=== PATIENT | female | born 1975 | race Caucasian/White ===

== ENCOUNTER → 2016-07-13 | Outpatient (CLI) | payer OTHER ==
[~2016-07-13] MED LIST: PRLSR20 PO; SPIR100T PO
[2016-07-13 12:18] LABS: BASO % 0.5 %; BASO ABS # 0.03 K/uL (0-0.2); COMPLETE YES; EOS % 2.7 %; HEMATOCRIT 39.7 % (37-47); IG% 0.7 %; LYMPH ABS # 1.84 K/uL (1.2-3.4); MEAN CORPUSCULAR HEMOGLOBIN 32.6 pg (25-34); MEAN PLATELET VOLUME 10.1 fL (7.4-10.4); MONO % 8.9 %; NEUT % 56.2 %; PLATELET COUNT 313 K/uL (130-400); RED BLOOD COUNT 4.27 M/uL (4.2-5.4); WHITE BLOOD COUNT 5.94 K/uL (4.8-10.8)
[2016-07-13 12:27] LABS: ALT/SGPT 53 U/L (12-78); AST/SGOT 22 U/L (15-37); BLOOD UREA NITROGEN 16 mg/dl (7-18); CALCIUM 9.1 mg/dl (8.5-10.1); CARBON DIOXIDE 27 mmol/L (21-32); CHLORIDE 104 mmol/L (98-107); CREATININE 0.82 mg/dl (0.60-1.20); GLUCOSE 84 mg/dl (70-99); POTASSIUM 4.3 mmol/L (3.5-5.1); SODIUM 138 mmol/L (136-145)
[2016-07-13 12:38] LABS: ALB/GLOB RATIO 1.4 (0.9-2); ALKALINE PHOSPHATASE 61 U/L (45-117)
== END | disposition home or self-care (01) ==
LOC: C.LABBFT 09:36
PROVIDERS: ATTEND Internal Medicine
DX: Z00.00 Encounter for general adult medical examination without abnormal findings (principal); R42 Dizziness and giddiness

== ENCOUNTER → 2016-07-21 | Outpatient (CLI) | payer OTHER ==
[~2016-07-21] MED LIST changes: +GADAVIST IV PRN
--- NOTE | 2016-07-21 20:50 | DIAGNOSTIC IMAGING REPORT ---
MRI OF THE BRAIN WITHOUT AND WITH IV CONTRAST CLINICAL HISTORY: Dizziness and headache COMPARISON STUDY: No previous studies for comparison. TECHNIQUE: MRI of the brain was performed from the vertex to the skull base utilizing various T1 and T2 weighted sequences. Following the IV administration of 5 mL of Gadavist contrast, additional enhanced images were obtained. FINDINGS: Sagittal T1, axial diffusion, proton density and T2 weighted axial, coronal FLAIR, and pre and post axial T1-weighted images were acquired. These were supplemented with post gadolinium coronal T1 weighted images. No intra or extra-axial mass lesions are visualized. Axial diffusion-weighted images reveal no evidence of acute or subacute infarction. There is no evidence of ventricular dilatation. Proton density T2-weighted and FLAIR images reveal a 2 mm focus of increased FLAIR signal within the right temporal lobe preston-white junction. This is not visualized on proton density or T2 weighted images. There is no surrounding edema. There is no pathologic enhancement. It is unclear whether this is a real or artifactual lesion. A 6 month follow-up study might be considered. There are no abnormal flow voids. 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 IMPRESSION: 1. No evidence of acute or subacute infarction 2. 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 2 mm focus of increased FLAIR signal within the right temporal lobe preston-white junction visualized only on coronal FLAIR images. It is conceivable that this is artifactual. A 6 month follow-up study might be considered. Electronically signed by: Raphael Nava M.D. 07/21/2016 8:48 PM Dictated Date/Time: 07/21/2016 8:41 PM
== END | disposition home or self-care (01) ==
LOC: C.MRI 19:14
PROVIDERS: ATTEND Internal Medicine
DX: R42 Dizziness and giddiness (principal); R51 Headache

== ENCOUNTER → 2016-08-11 | Outpatient (CLI) | payer OTHER ==
[~2016-08-11] MED LIST changes: -GADAVIST IV PRN
[2016-08-11 19:56] LABS: LYME DISEASE AB IGG NEG (NEG); LYME DISEASE AB IGM NEG (NEG)
== END | disposition home or self-care (01) ==
LOC: C.LABBC 15:30
PROVIDERS: ATTEND Psychiatry & Neurology Neurology
DX: R42 Dizziness and giddiness (principal); G44.209 Tension-type headache, unspecified, not intractable

== ENCOUNTER 2016-12-14 15:44 | Emergency (ER) | payer OTHER ==
[~2016-12-14] VITALS: Ht 162.6 cm; Wt 55.6 kg
[2016-12-14 15:51] VITALS: TEMP 36.7; Ht 162.6 cm; Wt 55.6 kg
[2016-12-14] MEDS ORDERED: ALUMINUM/MAGNESIUM SUSP 30 ML UDC PO STA (16:03)
[2016-12-14] MEDS ORDERED: PANTOprazole SOD 40 MG TAB PO STA (16:03)
[2016-12-14 16:24] VITALS: O2SAT 99
--- NOTE | 2016-12-14 16:25 | DIAGNOSTIC IMAGING REPORT ---
CHEST ONE VIEW PORTABLE CLINICAL HISTORY: Chest pain radiating to the back. COMPARISON STUDY: No previous studies for comparison. FINDINGS: The cardiac and mediastinal contours are normal. There is no evidence of focal pulmonary consolidation. There is no evidence of failure. No pleural effusions are visualized.[ IMPRESSION: No active disease in the chest. Electronically signed by: Raphael Nava M.D. 12/14/2016 4:23 PM Dictated Date/Time: 12/14/2016 4:23 PM
[2016-12-14 16:29] LABS: BASO % 0.2 %; BASO ABS # 0.02 K/uL (0-0.2); COMPLETE YES; EOS % 1.3 %; HEMATOCRIT 40.1 % (37-47); IG% 0.4 %; LYMPH % 16.5 %; LYMPH ABS # 1.41 K/uL (1.2-3.4); MEAN CELL VOLUME 94.6 fL (80-100); MEAN CORPUSCULAR HEMOGLOBIN 32.1 pg (25-34); MEAN CORPUSCULAR HGB CONC 33.9 g/dl (32-36); MEAN PLATELET VOLUME 9.6 fL (7.4-10.4); MONO % 8.9 %; NEUT % 72.7 %; PLATELET COUNT 269 K/uL (130-400); RED BLOOD COUNT 4.24 M/uL (4.2-5.4); WHITE BLOOD COUNT 8.54 K/uL (4.8-10.8)
[2016-12-14 16:50] LABS: PARTIAL THROMBOPLASTIN RATIO 1.1
[2016-12-14 16:52] LABS: ALT/SGPT 40 U/L (12-78); AST/SGOT 19 U/L (15-37); BLOOD UREA NITROGEN 13 mg/dl (7-18); BUN/CREATININE RATIO 17.8 (10-20); CALCIUM 9.1 mg/dl (8.5-10.1); CARBON DIOXIDE 25 mmol/L (21-32); CHLORIDE 104 mmol/L (98-107); CREATININE 0.73 mg/dl (0.60-1.20); GLUCOSE 80 mg/dl (70-99); POTASSIUM 3.6 mmol/L (3.5-5.1); SODIUM 139 mmol/L (136-145)
[2016-12-14 16:53] LABS: PREG INTERNAL NEGATIVE QC NEG CLEAR BACKGROUND; PREG INTERNAL POSITIVE QC POS CONTROL LINE
[2016-12-14 16:55] LABS: ALKALINE PHOSPHATASE 71 U/L (45-117)
--- NOTE | 2016-12-14 19:34 | EMERGENCY ROOM VISIT NOTE ---
History Report prepared by Ashishibgarrett: [employer] Under the Supervision of: Dr. Arthur Dotson D.O. First contact with patient: 15:54 Chief Complaint: CHEST PAIN Stated Complaint: CHEST PAIN- 24 HOURS, PAIN TO BACK AND EARS History of Present Illness The patient is a 41 year old female who presents to the Emergency Room with complaints of persistent centralized chest pain beginning yesterday. She states that her pain radiates into her back, shoulders, and up to her ears. She denies any cough, fevers, or diarrhea. The patient notes that she experienced a little lower abdominal pain yesterday. She has a history of heart burn and states that her symptoms felt similar, but worse. She denies eating any foods that would normally bring about her GERD. The patient noted that her pain worsened during dinner last night. She took Tums for her pain and feels that it helped her symptoms. She notes that her father had a heart attack in his 30's. The patient has no cardiac history. She has not received cardiac testing before. Her pain is worsened with exertion and deep breathing. Source of History: patient Onset: Yesterday Position: chest (centralized) Timing: other (persistent) Modifying Factors (Worsening): exertion, breathing (deep) Modifying Factors (Relieving): other (Tums) Associated Symptoms: + abdominal pain (yesterday), No fevers, No vomiting, No diarrhea Review of Systems See HPI for pertinent positives & negatives. A total of 10 systems reviewed and were otherwise negative. Past Medical & Surgical Medical Problems: (1) No Known Active Medical Problems Family History No pertinent family history stated. Social History Smoking Status: Never Smoker Housing Status: lives with family Current/Historical Medications Scheduled Omeprazole (Prilosec), 20 MG PO DAILY Spironolactone (Aldactone), 100 MG PO QAM Allergies Coded Allergies: Amoxicillin (Verified Allergy, Unknown, RASH, 12/14/16) Erythromycin (Verified Allergy, Unknown, RASH, 12/14/16) Minocycline (Verified Allergy, Unknown, HEADACHE, 12/14/16) Uncoded Allergies: SULFA DRUGS (Allergy, Unknown, VOMMITING, 05/13/15) Physical Exam Vital Signs Date Time Temp Pulse Resp B/P (MAP) Pulse Ox O2 Delivery O2 Flow Rate FiO2 12/14/16 19:40 81 18 105/68 98 12/14/16 18:30 81 18 117/66 100 Room Air 12/14/16 16:29 77 12/14/16 16:24 99 Room Air 12/14/16 16:24 99 Room Air 12/14/16 15:51 36.7 88 16 114/71 99 Room Air Physical Exam GENERAL: Patient is awake, alert, and in no acute distress. Patient is resting comfortably and showing no signs of anxiety EYES: The conjunctivae are clear. The pupils are round and reactive. EARS, NOSE, MOUTH AND THROAT: The nose is without any evidence of any deformity. Mucous membranes are moist tongue is midline NECK: The neck is nontender and supple. RESPIRATORY: Normal respiratory effort is noted there is no evidence of wheezing rhonchi or rales CARDIOVASCULAR: Regular rate and rhythm noted there no murmurs rubs or gallops normal S1 normal S2 GASTROINTESTINAL: The abdomen is soft. Bowel sounds are present in all quadrants. Abdomen is nontender MUSCULOSKELETAL/EXTREMITIES: There is no evidence of gross deformity full range of motion is noted in the hips and shoulders SKIN: There is no obvious evidence of any rash. There are no petechiae, pallor or cyanosis noted. NEUROLOGIC: Patient is awake alert and oriented x3 Medical Decision & Procedures ER Provider Diagnostic Interpretation: X-ray results as stated below per interpretation by me and the radiologist. CHEST ONE VIEW PORTABLE FINDINGS: The cardiac and mediastinal contours are normal. There is no evidence of focal pulmonary consolidation. There is no evidence of failure. No pleural effusions are visualized.[ IMPRESSION: No active disease in the chest. Electronically signed by: Raphael Nava M.D. Laboratory Results 12/14/16 16:10 Red Blood Count 4.24, Mean Corpuscular Volume 94.6, Mean Corpuscular Hemoglobin 32.1, Mean Corpuscular Hemoglobin Concent 33.9, Mean Platelet Volume 9.6, Neutrophils (%) (Auto) 72.7, Lymphocytes (%) (Auto) 16.5, Monocytes (%) (Auto) 8.9, Eosinophils (%) (Auto) 1.3, Basophils (%) (Auto) 0.2, Neutrophils # (Auto) 6.21, Lymphocytes # (Auto) 1.41, Monocytes # (Auto) 0.76, Eosinophils # (Auto) 0.11, Basophils # (Auto) 0.02 12/14/16 16:10 Test 12/14/16 16:10 12/14/16 16:21 12/14/16 18:21 White Blood Count 8.54 K/uL (4.8-10.8) Red Blood Count 4.24 M/uL (4.2-5.4) Hemoglobin 13.6 g/dL (12.0-16.0) Hematocrit 40.1 % (37-47) Mean Corpuscular Volume 94.6 fL (80-100) Mean Corpuscular Hemoglobin 32.1 pg (25-34) Mean Corpuscular Hemoglobin Concent 33.9 g/dl (32-36) Platelet Count 269 K/uL (130-400) Mean Platelet Volume 9.6 fL (7.4-10.4) Neutrophils (%) (Auto) 72.7 % Lymphocytes (%) (Auto) 16.5 % Monocytes (%) (Auto) 8.9 % Eosinophils (%) (Auto) 1.3 % Basophils (%) (Auto) 0.2 % Neutrophils # (Auto) 6.21 K/uL (1.4-6.5) Lymphocytes # (Auto) 1.41 K/uL (1.2-3.4) Monocytes # (Auto) 0.76 K/uL (0.11-0.59) Eosinophils # (Auto) 0.11 K/uL (0-0.5) Basophils # (Auto) 0.02 K/uL (0-0.2) RDW Standard Deviation 41.9 fL (36.4-46.3) RDW Coefficient of Variation 12.3 % (11.5-14.5) Immature Granulocyte % (Auto) 0.4 % Immature Granulocyte # (Auto) 0.03 K/uL (0.00-0.02) Prothrombin Time 11.0 SECONDS (9.0-12.0) Prothromb Time International Ratio 1.0 (0.9-1.1) Activated Partial Thromboplast Time 29.4 SECONDS (21.0-31.0) Partial Thromboplastin Ratio 1.1 Anion Gap 10.0 mmol/L (3-11) Est Creatinine Clear Calc Drug Dose 86.7 ml/min Estimated GFR () 117.7 Estimated GFR (Non- 101.6 BUN/Creatinine Ratio 17.8 (10-20) Calcium Level 9.1 mg/dl (8.5-10.1) Total Bilirubin 0.6 mg/dl (0.2-1) Direct Bilirubin 0.2 mg/dl (0-0.2) Aspartate Amino Transf (AST/SGOT) 19 U/L (15-37) Alanine Aminotransferase (ALT/SGPT) 40 U/L (12-78) Alkaline Phosphatase 71 U/L (45-117) Total Protein 7.4 gm/dl (6.4-8.2) Albumin 4.2 gm/dl (3.4-5.0) Lipase 104 U/L (73-393) Human Chorionic Gonadotropin, Qual NEG (NEG) Bedside D-Dimer 118 ng/mlFEU (0-450) Troponin I < 0.015 ng/ml (0-0.045) Laboratory results per my review. Medications Administered Medications (Trade) Dose Ordered Sig/Trena Route Start Time Stop Time Status Last Admin Dose Admin Al Hydroxide/Mg Hydroxide (Maalox Susp) 30 ml NOW STAT PO 12/14/16 16:03 12/14/16 16:05 DC 12/14/16 16:26 30 ML Pantoprazole Sodium (Protonix Tab) 40 mg NOW STAT PO 12/14/16 16:03 12/14/16 16:05 DC 12/14/16 16:26 40 MG ECG Indication: chest pain Rate (beats per minute): 75 Rhythm: normal sinus Findings: no ectopy, other (Inferior T-wave abnormality. No acute ST segment abnormality.) Comparison ECG Date: no prior available Change: Repeat ECG reveals a normal sinus rhythm with a rate of 81 bpm. Inferior T-wave abnormality. No significant change from previous ECG. ED Course 1559: The patient was evaluated in room B2. A complete history and physical examination were performed. 1603: Ordered Protonix Tab 40 mg PO, Maalox Susp 30 mL PO. 1921: Upon reevaluation, the patient is resting comfortably. I discussed the results and treatment plan with her. She verbalized agreement of the treatment plan. The patient was discharged home. Medical Decision Differential diagnosis: Etiologies such as cardiac ischemia, aortic dissection, pulmonary embolism, pneumonia, pneumothorax, musculoskeletal, infections, pericarditis, myocarditis , esophageal rupture, gastrointestinal, as well as others were entertained. Nursing notes reviewed. The patient is a 41-year-old female who presented to the emergency department for an evaluation of ongoing chest pain which began last evening. The patient initially thought her symptoms were from reflux or GERD and has been taking over -the-counter antacids. The patient's EKG did not show any acute ST segment elevations but I did not have a previous EKG for comparison. The patient's cardiac biomarkers were negative despite having ongoing pain since yesterday. The patient had repeat troponin as well as repeat EKG in the emergency department and there were no dynamic changes noted. I discussed patient's laboratory and radiographic studies with her. I discussed the limitations of the emergency department workup for chest pain with her. She was encouraged to rest and avoid any strenuous activity. She was encouraged to call her family doctor in the morning to schedule a follow-up appointment and to discuss the possibility that she may require a stress test because of her family history. She was also encouraged return to the emergency department immediately symptoms change worsen or the need arises. Impression Primary Impression: Substernal chest pain Scribe Attestation The scribe's documentation has been prepared under my direction and personally reviewed by me in its entirety. I confirm that the note above accurately reflects all work, treatment, procedures, and medical decision making performed by me. Departure Information Dispostion Home / Self-Care Referrals Colette Chowdhury M.D. (PCP) Forms HOME CARE DOCUMENTATION FORM, IMPORTANT VISIT INFORMATION Patient Instructions ED Chest Pain Atypical Unkn Cause, My [facility] Additional Instructions Substernal call your family in the morning to schedule a follow-up appointment. Continue all medications as prescribed. Continue using Prilosec as well as Maalox or Mylanta as directed. Return to the emergency Department immediately if symptoms change worsen or the need arises. Avoid any strenuous activity.
[2016-12-14 19:40] VITALS: BP 105/68; PULSE 81; O2SAT 98
== END 2016-12-14 19:41 | disposition home or self-care (01) ==
LOC: C.EDB 15:46
DX: R07.2 Precordial pain (principal); K21.9 Gastro-esophageal reflux disease without esophagitis; Z82.49 Family history of ischemic heart disease and other diseases of the circulatory system; Z79.899 Other long term (current) drug therapy

== ENCOUNTER → 2017-03-24 | Outpatient (CLI) | payer OTHER ==
--- NOTE | 2017-03-24 16:00 | DIAGNOSTIC IMAGING REPORT ---
SOFT TISS HEAD/NECK-THYROID CLINICAL HISTORY: 41 years-old Female with R22.0 Mass of postauricular area. Palpable abnormality. COMPARISON: None available TECHNIQUE: Multiple real time sonographic images of the right per-auricular region were obtained accessing preston scale appearance and color doppler flow. FINDINGS: There is increased echogenicity measuring approximately 9 mm in length with posterior shadowing in the area of concern within the tissues posterior to the right ear. No vascular soft tissue mass identified. No drainable collection. IMPRESSION: Focal subcentimeter area of increased echogenicity with posterior acoustic shadowing in the area of concern suggests a calcified structure or possibly prominence of the adjacent mastoid. No soft tissue mass or drainable collection identified. If of further clinical concern, a follow-up CT may be considered. The above report was generated using voice recognition software. It may contain grammatical, syntax or spelling errors. Electronically signed by: Ezra Barros M.D. 03/24/2017 3:58 PM Dictated Date/Time: 03/24/2017 3:54 PM
== END | disposition home or self-care (01) ==
LOC: C.ULTRBC 15:08
PROVIDERS: ATTEND Internal Medicine
DX: R22.0 Localized swelling, mass and lump, head (principal)

== ENCOUNTER → 2017-04-24 | Outpatient (CLI) | payer OTHER | END | disposition home or self-care (01) | LOC: C.LAB1850 15:31 | PROVIDERS: ATTEND Internal Medicine | DX: Z00.00 Encounter for general adult medical examination without abnormal findings (principal) ==